=== PATIENT | male | born 1960 | race African-American/Black ===

== ENCOUNTER 2017-06-16 01:37 | Emergency (ER) | payer OTHER ==
[~2017-06-16] VITALS: Ht 182.9 cm; Wt 69.9 kg
--- NOTE | 2017-06-16 02:26 | NUR ---
Pt ambulated to room with steady gait. Pt c/o severe headache for the last 4 days with intermittent nausea. No neuro deficits noted. Dr. Billings at bedside for MSE, awaiting further orders.
--- NOTE | 2017-06-16 02:45 | NUR ---
pt to CT via w/c
--- NOTE | 2017-06-16 02:51 | NUR ---
pt returned from CT via w/c.
[2017-06-16] MEDS: METOCLOPRAMIDE HCL 10 MG TABLET PO ONE (03:19)
--- NOTE | 2017-06-16 03:20 | NUR ---
Pt stable for discharge per MD. Pt given ACI. Pt verbalized understanding of dc instructions. Pt ambulated out of ER with steady gait.
[2017-06-16 03:22] VITALS: BP 125/79
[2017-06-16] MEDS ORDERED: METOCLOPRAMIDE HCL 10 MG TABLET ONE (03:30)
== END 2017-06-16 03:23 | disposition home or self-care (01) ==
LOC: ER 01:37
DX: G43.909 Migraine, unspecified, not intractable, without status migrainosus (principal); B19.20 Unspecified viral hepatitis C without hepatic coma
CPT/HCPCS: 70450; 99284; A4663; J8597

== ENCOUNTER 2018-08-02 11:43 | Emergency (ER) | payer OTHER, MEDICARE, MEDICAID ==
[~2018-08-02] VITALS: Ht 182.9 cm; Wt 72.6 kg
[2018-08-02] MEDS ORDERED: PROM25TA15 PO (11:54)
[2018-08-02] MEDS ORDERED: ONDANSETRON 4 MG/2 ML VIAL IV ONE (12:15)
[2018-08-02] MEDS ORDERED: PANTOPRAZOLE SODIUM 40 MG VIAL IV ONE (12:15)
[2018-08-02] MEDS ORDERED: ONDANSETRON 4 MG/2 ML VIAL ONE (12:21)
[2018-08-02] MEDS ORDERED: PANTOPRAZOLE SODIUM 40 MG VIAL ONE (12:21)
[2018-08-02 12:22] LABS: BASOPHILS # (AUTO) 0.1 K/uL (0.0-8.0); BASOPHILS % (AUTO) 0.6 % (0.0-2.0); EOSINOPHILS % (AUTO) 0.3 % (0.0-7.0); HEMATOCRIT 46.5 % (36.7-47.1); HEMOGLOBIN 15.9 g/dL (12.5-16.3); LYMPHOCYTES # (AUTO) 1.9 K/uL (20.0-40.0); LYMPHOCYTES % (AUTO) 16.2 % (20.5-51.5); MEAN CORPUSCULAR HEMOGLOBIN 31.5 uug (23.8-33.4); MEAN CORPUSCULAR HGB CONC 34 g/dL (32.5-36.3); MEAN CORPUSCULAR VOLUME 92.4 fL (73.0-96.2); MONOCYTES # (AUTO) 1.1 K/uL (2.0-10.0); MONOCYTES % (AUTO) 8.9 % (0.0-11.0); NEUTROPHILS # (AUTO) 8.8 K/uL (1.8-8.9); PLATELET COUNT (AUTO) 212 K/uL (152-348); RED BLOOD CELL COUNT(AUTO) 5.03 MIL/uL (4.06-5.63); WHITE BLOOD COUNT (AUTO) 11.9 K/uL (3.6-10.2)
--- NOTE | 2018-08-02 12:39 | NUR ---
PT IS IN ROOM #1B. DR GIFFORD EVALUATED THE PT.
[2018-08-02 12:45] LABS: BILIRUBIN,DIRECT 0.4 mg/dL (0.0-0.2); TOTAL PROTEIN, SERUM 8.5 g/dL (6.4-8.2)
[2018-08-02] MEDS ORDERED: DICYCLOMINE HCL 20 MG/2 ML AMPUL IM SCH (12:45)
[2018-08-02 12:50] LABS: POTASSIUM 2.7 mmol/L (3.5-5.1)
[2018-08-02] MEDS ORDERED: LORAZEPAM 2 MG/1 ML VIAL ONE (12:55)
[2018-08-02] MEDS ORDERED: LORAZEPAM 2 MG/1 ML VIAL IV ONE (13:00)
[2018-08-02] MEDS ORDERED: DICYCLOMINE HCL 20 MG TABLET PO SCH (13:00)
[2018-08-02] MEDS ORDERED: POTASSIUM CHLORIDE 20 MEQ TAB.PRT.SR PO ONE (13:00)
[2018-08-02] MEDS ORDERED: POTASSIUM CHLORIDE 20 MEQ TAB.PRT.SR ONE (13:04)
[2018-08-02] MEDS ORDERED: POTASSIUM CHLORIDE 100 ML ONE (13:04)
[2018-08-02] MEDS: POTASSIUM CHLORIDE 50 ML IV SCH ×2 (13:16→14:55)
--- NOTE | 2018-08-02 14:57 | NUR ---
PT WAS D/C'D TO HOME. D/C INSTRUCTIONS GIVEN TO THE PT.
[2018-08-02 14:58] VITALS: BP 138/81
== END 2018-08-02 14:59 | disposition home or self-care (01) ==
LOC: ER 11:43
DX: R10.12 Left upper quadrant pain (principal); E87.6 Hypokalemia; Z79.899 Other long term (current) drug therapy
CPT/HCPCS: 36415; 76700; 80048; 80076; 82150; 83690; 84484; 85025; 93005; 96365; 96366; 96372; 96375; 99284; C9113; J0500; J2060; J2405; J3480; 70030-TC; A4663